=== PATIENT | female | born 1995 | race American Indian/Alaskan Native ===

== ENCOUNTER 2016-11-12 14:24 | Emergency (ER) | payer SELFPAY | END 2016-11-12 14:25 | disposition left against medical advice (07) | LOC: ED 14:24 | DX: R10.9 Unspecified abdominal pain (principal); R51 Headache; Z53.21 Procedure and treatment not carried out due to patient leaving prior to being seen by health care provider ==

== ENCOUNTER 2017-01-11 11:15 | Outpatient (CLI) | payer MEDICAID ==
[2017-01-11] MEDS ORDERED: LACTATED RINGERS 500 ML IV ONE (11:38)
== END 2017-01-11 13:11 | disposition home or self-care (01) ==
LOC: TRG 11:15
PROVIDERS: ATTEND Obstetrics & Gynecology Gynecology
DX: O47.02 False labor before 37 completed weeks of gestation, second trimester (principal); Z3A.20 20 weeks gestation of pregnancy